=== PATIENT | male | born 1950 | race Caucasian/White ===

== ENCOUNTER → 2023-10-25 06:35 | Day surgery (SDC) | payer OTHER, SELFPAY | LOC: GI 06:35 | PROVIDERS: ATTENDING PHYSICIAN Specialist; FAMILY PHYSICIAN Internal Medicine | DX: Z12.11 Encounter for screening for malignant neoplasm of colon (principal); K57.30 Diverticulosis of large intestine without perforation or abscess without bleeding; Z86.010 Personal history of colon polyps | CPT/HCPCS: G0105 ==

== ENCOUNTER → 2023-11-29 11:43 | Outpatient (REF) | payer OTHER, SELFPAY | LOC: RAD 11:43 | PROVIDERS: ATTENDING PHYSICIAN Nurse Practitioner | DX: M25.512 Pain in left shoulder (principal) | CPT/HCPCS: 73030 ==

== ENCOUNTER 2023-12-25 17:26 | Emergency (ER) | payer OTHER, SELFPAY ==
[2023-12-25 17:33] VITALS: BP 179/88; BMI 27.3
[2023-12-25] MEDS: ADACEL 0.5 ML IM (19:21)
--- NOTE | 2023-12-25 23:16 | ED.MUSCINJ ---
HPI-Injury
General
Chief Complaint: Fall
Source: patient and family
Exam Limitations: none
Time Seen by Provider: 12/25/23 18:17
Nursing documentation reviewed up to this point in time: agreed with
Travel History
Have you had any contact with someone who has COVID-19?: No
Do you have any symptoms of coronavirus? Fever > 100 degrees, chills, cough, shortness of breath, sore throat, loss of taste or smell, muscle aches, or headache?: No
History of Present Illness-Injury
Is this injury a work related problem?: No
Is pt an associate of [facility]?: No
Initial Injury comments:
Patient states he was doing yardwork and fell. Hit back ofhead on ground. No LOC. Sustained small lac to left occipital scalp. Denies any other injuries. He is currently being followed by ortho for left shoulder pain. Has MRI scheduled for
January. He denies any new injury. Denies any new pain to LUE. Brought to ED by family for eval.
Past History
Past History
ED Past Medical History: Negative CAD, Cancer or CHF
ED Past Surgical History: Negative Cardiac
Social History
Tobacco: Non-smoker
Alcohol: Daily
Drug: None
Personal:
Living: with family
Employment: Employed
Family History
Family History: Negative Early CAD
Review of Systems
Review of Systems
Allergies reviewed?: Yes
All Other Systems: ROS reviewed and negative except as documented in HPI and ROS
Constitutional: Reports no symptoms
EENT: Reports no symptoms
Respiratory: Reports no symptoms
Cardiac: Reports no symptoms
ABD/GI: Reports no symptoms
Musculoskeletal: Reports no symptoms (Chronic left shoulder pain)
Skin: Reports other (small laceration to left occipital scalp.)
Neurological: Reports no symptoms
Psychiatric: Reports no symptoms
Skin Exam
Laceration
Left Posterior Scalp:
Length in cm: 0.5
Orientation: diagonal
Type of Laceration: simple
Any active bleeding?: no active bleeding
Distal skin color and temperature: normal-warm & good color
Normal distal neurovascular exam: Yes
Phy Exam
General Physical Exam
General Presentation: well appearing and no apparent distress
General age: appears stated age
General Skin: warm and dry
General Habitus: normal
General Mental: alert
Eye Exam
Eye Exam: PERRL, EOMI and conjunctiva normal
Neurological Exam
Neurological Exam: alert, oriented x3, CN II-XII intact, no sensory deficits, speech normal and normal gait
Aleksandr Coma Scale
Eye Opening: Spontaneous
Verbal Response: Oriented
Motor Response: Obeys Commands
GCS Total Score: 15
Musculoskeletal Exam
Musculoskeletal Exam: neuro vasc intact and other (Chronic pain to left shoulder. Denies any new injury today. )
Skin Exam
Skin Exam: normal color, warm/dry and no rash
Psychiatric Exam
Psychiatric Exam: normal mood/affect
Injury Course
Orders/Labs/Results
Orders:
Orders
12/25/23 18:36
CT Head W/o Iv Contrast Urgent
Comment:
Reason For Exam: fall
Tetanus/Diphth/Acelpertussis [Adacel] 0.5 ml IM .ONCE ONE
Procedures
Laceration Closure
Left Posterior Scalp:
Status of Wound: clean
Description of Wound Edges: sharp
Preparation: cleaned with saline
Revision/Debridement: routine- no revision
Wound exploration: explored to base- no FB
Type of Closure: Dermabond-skin glue
*Radiology
Radiology exam reviewed: radiology read reviewed
*Pulse Oximetry
Patient hypoxic: no
*Critical Care Note
Total Time (30-74mins, 75-104mins- exclusive of procedures): Not Applicable
ED Attending Note
-
Portions of this chart may have been created with voice recognition software.� Occasional wrong word or��sound alike� substitutions may have occurred due to the inherent limitations of voice recognition software.
Discharge Plan
Departure
Patient Disposition: Home (Routine Discharge)
Date of Disposition: 12/25/23
Time of Disposition: 19:05
Patient with high blood pressure during this ER visit?: No
Condition: Good
Covid-19: Not Applicable
Discharge Problem:
Head injury
Instructions: Head Injury in Adults (DC), Contusion (DC), Preventing falls in adults
Prescriptions:
No Action
lisinopril 2.5 MG tablet
2.5 mg PO DAILY Qty: 30 11RF
carvedilol 12.5 MG tablet
25 mg PO BID
atorvastatin 20 MG tablet
20 mg PO QPM
spironolactone [Aldactone] 25 MG tablet
12.5 mg PO DAILY
furosemide 40 MG tablet
40 mg PO DAILY
furosemide 20 MG tablet
20 mg PO QPM
rivaroxaban [Xarelto] 20 MG tablet
20 mg PO DAILY Qty: 0 0RF
Rx Instructions:
Resume on Friday 02/09
Referrals:
Cynthia Egan MD [Family Provider] - Tomorrow
Interventions
Interventions:
*Risk Screen - Suicide Last Done: 12/25/23 17:33
*General Assessment Last Done: 12/25/23 18:16
*Neglect/Abuse Screening Last Done: 12/25/23 17:33
ED- Fall Risk Assessment Last Done: 12/25/23 17:33
*ED COVID-19 Vaccine History Last Done: 12/25/23 17:33
*Nursing Disposition Last Done: 12/25/23 19:46
ED-Musculoskeletal Assessment Last Done: 12/25/23 18:16
ED- Neurological Assessment Last Done: 12/25/23 18:16
ED-Skin Assessment Last Done: 12/25/23 18:16
Discharge Date and Time
Discharge Date/Time: 12/25/23 19:46
Print Language: SWAZI
== END 2023-12-25 19:46 | disposition home or self-care (01) ==
LOC: EMR 17:26
PROVIDERS: EMERGENCY PHYSICIAN Emergency Medicine; FAMILY PHYSICIAN Internal Medicine
DX: S01.01XA Laceration without foreign body of scalp, initial encounter (principal); S09.90XA Unspecified injury of head, initial encounter; W19.XXXA Unspecified fall, initial encounter; Y93.H2 Activity, gardening and landscaping; Z23 Encounter for immunization
CPT/HCPCS: 99284; 90471; 12001; 70450; 90715

== ENCOUNTER → 2024-01-31 11:47 | Outpatient (REF) | payer OTHER, SELFPAY | LOC: RAD 11:47 | PROVIDERS: ATTENDING PHYSICIAN Orthopaedic Surgery; FAMILY PHYSICIAN Internal Medicine | DX: M25.512 Pain in left shoulder (principal) | CPT/HCPCS: 71046 ==

== ENCOUNTER → 2024-02-04 09:35 | Outpatient (REF) | payer OTHER, SELFPAY | LOC: MRI 09:35 | PROVIDERS: ATTENDING PHYSICIAN Orthopaedic Surgery; FAMILY PHYSICIAN Internal Medicine | DX: M25.512 Pain in left shoulder (principal) | CPT/HCPCS: 73221 ==

== ENCOUNTER 2024-03-23 14:13 | Outpatient (RCR) | payer OTHER, SELFPAY | END 2024-03-23 23:59 | disposition home or self-care (01) | LOC: RPT 14:13 | PROVIDERS: ATTENDING PHYSICIAN Orthopaedic Surgery; FAMILY PHYSICIAN Internal Medicine | DX: M25.512 Pain in left shoulder (principal); Z73.6 Limitation of activities due to disability | CPT/HCPCS: 97110; 97112; 97140; 97162 ==

== ENCOUNTER 2024-04-24 11:05 | Outpatient (RCR) | payer OTHER, SELFPAY | END 2024-04-24 23:59 | disposition home or self-care (01) | LOC: RPT 11:05 | PROVIDERS: ATTENDING PHYSICIAN Orthopaedic Surgery; FAMILY PHYSICIAN Internal Medicine | DX: M25.512 Pain in left shoulder (principal); Z73.6 Limitation of activities due to disability | CPT/HCPCS: 97010; 97110; 97140 ==

== ENCOUNTER 2024-05-12 13:05 | Outpatient (RCR) | payer OTHER, SELFPAY | END 2024-05-12 23:59 | disposition home or self-care (01) | LOC: RPT 13:05 | PROVIDERS: ATTENDING PHYSICIAN Orthopaedic Surgery; FAMILY PHYSICIAN Internal Medicine | DX: M25.512 Pain in left shoulder (principal); Z73.6 Limitation of activities due to disability | CPT/HCPCS: 97010; 97110; 97140 ==

== ENCOUNTER → 2025-02-19 13:34 | Outpatient (REF) | payer OTHER, SELFPAY | LOC: MRI 13:34 | PROVIDERS: ATTENDING PHYSICIAN Urology; FAMILY PHYSICIAN Hospitalist | DX: R97.20 Elevated prostate specific antigen [PSA] (principal) | CPT/HCPCS: 72197; 76014; 76015; A9575 ==